=== PATIENT | female | born 2005 | race Hispanic/Latino ===

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

== ENCOUNTER 2024-09-05 12:25 | Outpatient (CLI) | payer OTHER ==
[2024-09-05 13:43] LABS: Hematocrit 35.4 % (34.9-44.5); Hemoglobin 10.8 g/dL (12.0-15.5); Platelet Count 263 10x3/uL (150-450)
[2024-09-05 14:21] LABS: HBsAg Index 0.29 S/CO (0-0.99); Hep B Surf Ag Non-Reactive S/CO (NonReactive); Syphilis Antibody Nonreactive (Nonreactive); Syphilis Antibody Index 0.23 S/CO (<1.00 Non-Reactive)
== END 2024-09-05 12:26 | disposition home or self-care (01) ==
LOC: CSHLAB 12:25 → MERGE 12:25 → CSHLAB 12:26
PROVIDERS: ATTEND Family Medicine
DX: Z01.812 Encounter for preprocedural laboratory examination (principal)
CPT/HCPCS: 85014; 85018; 85049; 86780; 86850; 86900; 86901; 87340

== ENCOUNTER 2024-09-08 15:10 | Inpatient (IN) | payer MEDICAID ==
[2024-09-08] MEDS ORDERED: hydrALAZINE 20 MG/ML VIAL SLOW IVP PRN ×2 (15:11→20:56)
[2024-09-08] MEDS ORDERED: Bicitra 30 ML UDCUP PO PRN (15:11)
[2024-09-08] MEDS ORDERED: Tranexamic Acid 1,000 MG/10 ML VIAL IVP PRN (15:11)
[2024-09-08] MEDS ORDERED: Methylergonovine 0.2 MG/ML VIAL IM PRN (15:11)
[2024-09-08] MEDS ORDERED: Misoprostol 200 MCG TAB PR PRN (15:11)
[2024-09-08] MEDS ORDERED: Promethazine HCl 25 MG/ML VIAL IM PRN ×3 (15:11→20:56)
[2024-09-08] MEDS ORDERED: Ondansetron PF 4 MG/2 ML Vial IVP PRN ×4 (15:11→20:56)
[2024-09-08] MEDS ORDERED: Oxytocin 30 units/NS 500 ML 500 ML IV SCH (15:11)
[2024-09-08] MEDS ORDERED: Diphenoxylate HCl/Atropine Tablet PO PRN (15:11)
[2024-09-08] MEDS ORDERED: CEFAZOLIN 2 GM in Sodium Chloride 0.9% 100 ML IVPB SCH (15:11)
[2024-09-08] MEDS ORDERED: Famotidine/PF 20 mg/2ml Vial SLOW IVP PRN (15:11)
[2024-09-08] MEDS ORDERED: Carboprost 250 MCG/ML AMP IM PRN (15:11)
[2024-09-08 16:11] VITALS: BMI 36.2
[2024-09-08] MEDS ORDERED: Moisturizing Cream (Eucerin) 113 GM JAR TOP PRN (17:43)
[2024-09-08] MEDS ORDERED: HYDROmorphone 0.5 MG/0.5 ML SYRINGE SLOW IVP PRN ×2 (17:43→21:43)
[2024-09-08] MEDS ORDERED: Naloxone HCl 0.4 mg/ml Vial IVP PRN ×2 (17:43)
[2024-09-08] MEDS ORDERED: Naloxone HCl 0.4 mg/ml Vial IV PRN (17:43)
[2024-09-08] MEDS ORDERED: Communication Order-Pharmacy FS SCH (17:45)
[2024-09-08] MEDS: fentaNYL 50 mcg/mL 1 mL Vial ONE (19:04)
[2024-09-08] MEDS: Famotidine/PF 20 mg/2ml Vial ONE (19:04)
[2024-09-08] MEDS: Morphine PF 10 MG/10 ML VIAL ONE (19:04)
[2024-09-08] MEDS: Lactated Ringer's 1,000 ML IV SCH (19:04)
[2024-09-08] MEDS: Phenylephrine 40 MG/NS 250 ML 250 ML ONE (19:05)
[2024-09-08] MEDS: Ondansetron PF 4 MG/2 ML Vial ONE (19:05)
[2024-09-08] MEDS: Promethazine HCl 25 MG/ML VIAL ONE (19:05)
[2024-09-08] MEDS: Oxytocin 10 UNITS/ML VIAL ONE ×2 (19:05)
[2024-09-08] MEDS: ePHEDrine Sulfate 50 MG/10 ML VIAL ONE (19:05)
[2024-09-08] MEDS: Ketorolac Tromethamine 30 MG (1 mL) VIAL IVP PRN (19:28)
[2024-09-08] MEDS: fentaNYL 50 mcg/mL 1 mL Vial SLOW IVP PRN ×2 (20:01→22:01)
[2024-09-08] MEDS ORDERED: Bisacodyl 10 MG SUPP PR PRN (20:56)
[2024-09-08] MEDS ORDERED: Lanolin Ointment 7 GM TUBE TOP PRN (20:56)
[2024-09-08] MEDS ORDERED: Boostrix 0.5 ML (Tdap) VIAL (>/=7 yrs of age) IM ONE (20:56)
[2024-09-08] MEDS: Docusate 100 MG CAP PO SCH (21:49)
[2024-09-08] MEDS: diphenhydrAMINE 25 MG CAP PO PRN (22:00)
[2024-09-08] MEDS: Ferrous Sulfate 325 MG TAB PO SCH (22:11)
[2024-09-09] MEDS: Ketorolac Tromethamine 30 MG (1 mL) VIAL IVP SCH (00:55)
[2024-09-09 05:36] LABS: Hematocrit 26.1 % (34.9-44.5); Hemoglobin 8.1 g/dL (12.0-15.5); Mean Corpuscular Hemoglobin 21.5 pg (27.0-33.0); Mean Corpuscular Volume 69.4 fL (81.6-98.3); Mean Platelet Volume 10.9 fL (7.4-10.4); Platelet Count 202 10x3/uL (150-450); RBC Distribution Width 16.4 % (11.5-14.5); Red Blood Cell (RBC) Count 3.76 10x6/uL (3.90-5.03); White Blood Cell (WBC) Count 10.57 10x3/uL (3.5-10.5)
[2024-09-09] MEDS ORDERED: HYDROcodone/Acetaminophen 5/325 mg Tablet PO PRN (05:45)
[2024-09-09] MEDS: Simethicone Chewable 80 MG TAB PO PRN (08:21)
[2024-09-09] MEDS: HYDROcodone/Acetaminophen 5/325 mg Tablet PO PRN (08:21)
[2024-09-09] MEDS: Prenatal Vitamin 1 TAB PO SCH (08:21)
[2024-09-09] MEDS: Ibuprofen 800 MG TAB PO SCH (21:40)
[2024-09-11 07:34] VITALS: BP 129/71; TEMP 98.1
== END 2024-09-11 16:30 | disposition home or self-care (01) | DRG 788 ==
LOC: CSHLD 15:10 → OBSVTOIN 15:11 → MERGE 17:00 → CSHPP 20:45
PROVIDERS: ADMIT Family Medicine; ATTEND Family Medicine
PROC: 10D00Z1 Extraction of Products of Conception, Low, Open Approach (ICD-10-PCS; principal; 2024-09-08)
DX: O34.211 Maternal care for low transverse scar from previous cesarean delivery (principal); O99.214 Obesity complicating childbirth; Z37.0 Single live birth; Z3A.39 39 weeks gestation of pregnancy
CPT/HCPCS: 36415; 51702; 85027; J1885; J2274; J2405; J2550; J2590; J3010; J3490